=== PATIENT | male | born 1965 | race African-American/Black ===

== ENCOUNTER 2023-01-17 01:45 | Emergency (ER) | payer MEDICAID, OTHER ==
[~2023-01-17] VITALS: Ht 188 cm; Wt 95.0 kg
[2023-01-17] MEDS ORDERED: IBUPROFEN 600MG TABLET PO ONE (03:15)
[2023-01-17] MEDS ORDERED: ONDANSETRON HCL 4MG/2ML INJ IV STA (03:40)
[2023-01-17] MEDS ORDERED: MORPHINE SULFATE 4 MG/ML CPJ (NOT FOR IM USE) IV STA (03:40)
[2023-01-17] MEDS ORDERED: SODIUM CHLORIDE 0.9% 1,000 ML IV ONE (03:45)
[2023-01-17 04:02] VITALS: O2SAT 99
[2023-01-17 04:32] LABS: BASOPHILS % 0.8 % (0.0-2.0); EOSINOPHILS % 0.6 % (0.0-5.0); HEMATOCRIT. 36.1 % (42.0-52.0); HEMOGLOBIN. 12.5 g/dL (14.0-18.0); LYMPHOCYTES % 11.5 % (20.0-50.0); MEAN CORPUSCULAR HEMOGLOBIN 33.5 pg (28.0-32.0); MEAN CORPUSCULAR HGB CONC 34.5 g/dL (31.0-37.0); MEAN PLATELET VOLUME 8.4 fl (7.4-10.4); MONOCYTES % 6.2 % (2.0-8.0); NEUTROPHILS % 80.9 % (40.0-76.0); PLATELET 219 x1000/uL (130-400); RED BLOOD CELL COUNT 3.72 mill/uL (4.7-6.1); RED CELL DISTRIBUTION WIDTH 14.2 % (11.6-14.6); WHITE BLOOD COUNT 9.2 x1000/uL (4.5-11.0)
[2023-01-17 04:41] LABS: CHLORIDE 99 mEq/L (98-107); INDEX HEMOLYSI 4 (1-3); INDEX ICTERIC 1 (1-4); INDEX LIPEMIC 1 (1-3); SODIUM 130 mEq/L (136-145)
[2023-01-17 04:47] LABS: CALCIUM 8.2 mg/dL (8.5-10.1); CARBON DIOXIDE 25 mEq/L (21-32); CREATININE 0.8 mg/dL (0.6-1.3); GLUCOSE 90 mg/dL (70-105); UREA NITROGEN BLOOD 6 mg/dL (7-21)
[2023-01-17 05:17] LABS: POTASSIUM 5.2 mEq/L (3.5-5.1)
[2023-01-17] MEDS ORDERED: MORPHINE SULFATE 4 MG/ML CPJ (NOT FOR IM USE) IV ONE ×2 (06:45→12:30)
[2023-01-17 14:38] VITALS: BP 151/65; PULSE 80; RESP 15; TEMP 98.2
== END 2023-01-17 14:39 | disposition short-term general hospital (02) ==
LOC: ER 01:45
DX: M25.561 Pain in right knee (principal); I10 Essential (primary) hypertension; R42 Dizziness and giddiness; V98.8XXA Other specified transport accidents, initial encounter; W22.19XA Striking against or struck by other automobile airbag, initial encounter; Y93.89 Activity, other specified; Y92.89 Other specified places as the place of occurrence of the external cause; Y99.8 Other external cause status
CPT/HCPCS: 80048; 85025; 36415; 73551; 71045; 72170; 73560; 73590; 75635; 70450; 29505; 96361; 96374; 96375; 96376; 99291; Q9967; J2405; J2270; J7030; Z7610 ×5